=== PATIENT | male | born 1945 | race Caucasian/White ===

== ENCOUNTER 2018-08-31 17:14 | Inpatient (IN) | payer OTHER, MEDICARE ==
--- NOTE | 2018-08-31 17:22 | PDOC ---
Rapid Medical Evaluation Chief Complaint: Injury Time Seen by Provider: 08/31/18 17:16 Medical Evaluation: Allergies Allergy/AdvReac Type Severity Reaction Status Date / Time Penicillins Allergy Intermediate Rash Verified 08/31/18 17:16 08/31/18 17:18 I have performed a brief in-person evaluation of this patient. The patient presents with a chief complaint of: fall with arm forward, " I may have dislocated my shoulder" Pertinent physical exam findings: Shoulder capsule full, no mobility to right shoulder, strong grasp/ good pulse. Strain to right hip and thigh. I have ordered the following: shoulder Xray The patient will proceed to the ED for further evaluation Discharge Disposition - Diagnosis Shoulder injury - Referrals Referrals: Gabe Huber MD [Primary Care Provider] - - Patient Instructions - Post Discharge Activity
[2018-08-31] MEDS ORDERED: morphine CARPU-JECT 2 MG/1 ML DISP.SYRIN IVPUSH ONE ×2 (17:32→17:59)
--- NOTE | 2018-08-31 17:34 | PDOC ---
Attending Attestation - Medical Decision Making EXAM#: TYPE/EXAM: RESULT: [id number] RAD/SHOULDER-RIGHT Right shoulder: Trauma. Pain. 2 views of the shoulder reveal a fracture dislocation of the proximal humerus. The head is fractured. There is an anterior dislocation. The imaging is available for review. Orthopedic consultation and further imaging may be of help. Reported By: Pako Conn MD 08/31/18 180 <Mary Anne Dyson - Last Filed: 08/31/18 18:36> - Resident Resident Name: Cayla Noriega - ED Attending Attestation I have performed the following: I have examined & evaluated the patient, The case was reviewed & discussed with the resident, I agree w/resident's findings & plan, Exceptions are as noted - HPI HPI: 08/31/18 17:58 73y M hx of CAD (on brilinta), htn presents sp mechanical fall, going up the stairs and put his arm out to break his fall. Pt complaining of R shoulder pain as well as some tingling in the arm/shoulder and in his hand. Pt also complaining some mild Lower back pain that comes in spasms. denies head injury. No associated cp, sob, back pain, neck pain, abd pain, n/v. - Physicial Exam PE: 08/31/18 18:24 on exam pt has significant tenderness on his R shoulder diffusely, no sensation along deltoid region and lateral aspect of arm. motor intact with crane chaser strength. no focal tenderness on elbow and no pain with spination/pronation. no focal tenderness over midline or paraspinal region of cervical spine, thoracic, lumbar spine normal rom of his LUE/hand no focal bony tenderness of his hips/knee/ankle, no limiatations of his ROM - Critical Care Time Total Critical Care Time: 45 Critical Care Statement: The care of this patient involved high complexity decision making to prevent further life threatening deterioration of the patient 's condition and/or to evaluate & treat vital organ system(s) failure or risk of failure. - Medical Decision Making 08/31/18 18:25 on xray pt ahs a humeral head fracture and anterior dislocation of R shoulder suspect axillary nerve injury due to deminshed sensation consulted orthopedics, awaiting ortho for reduction due to associated fracture and neuro compromise preop labs obtained morphine for pain 08/31/18 17:20 pt signed out to Dr. Edgar to await Ortho and reduction consents for sedation already signed <Beto Barraza - Last Filed: 09/04/18 00:17>
[2018-08-31] MEDS ORDERED: morphine SULFATE 4 MG/ML VIAL ONE ×2 (17:44→18:45)
--- NOTE | 2018-08-31 17:44 | PDOC ---
History of Present Illness - General Chief Complaint: Injury Stated Complaint: RIGHT Shoulder PAIN Time Seen by Provider: 08/31/18 17:16 History Source: Patient Exam Limitations: No Limitations Past History - Past Medical History Allergies/Adverse Reactions: Allergies Allergy/AdvReac Type Severity Reaction Status Date / Time Penicillins Allergy Intermediate Rash Verified 08/31/18 17:16 Home Medications: Ambulatory Orders Atorvastatin Ca [Lipitor] 10 mg PO HS 07/04/14 Aspirin 81 mg PO DAILY 08/31/18 Carvedilol [Coreg -] 6.25 mg PO BID 08/31/18 Finasteride [Proscar -] 5 mg PO DAILY 08/31/18 Losartan/Hydrochlorothiazide [Losartan-Hctz 100-25 mg Tab] 1 each PO DAILY 08/31 Pantoprazole Sodium [Protonix -] 40 mg PO DAILY 08/31/18 Ticagrelor [Brilinta] 60 mg PO BID 08/31/18 Cardiac Disorders: Yes (AORTIC ANEURISM) COPD: No HTN: Yes Hypercholesterolemia: Yes - Surgical History Cardiac Surgery: Yes (stent LAD) - Suicide/Smoking/Psychosocial Hx Smoking History: Unknown if ever smoked *Physical Exam - Vital Signs Last Vital Signs Temp Pulse Resp BP Pulse Ox 72 24 H 172/72 H 99 08/31/18 17:20 08/31/18 17:20 08/31/18 17:20 08/31/18 17:20 Medical Decision Making - Medical Decision Making Pt in x-ray, will reassess when he returns. 08/31/18 17:34 Pt was seen at bedside, also seen by attending Dr. Barraza. Pt presenting with R shoulder PE showed [] Considering [vs vs] Ordered work-up including [labs] and [imaging]. Provided [interventions/meds] for improvement of [pain/symptom control]. Will continue to reassess pt and monitor for symptomatic improvement. 08/31/18 18:00 X-ray showed anterior dislocation of humerus and Dr. Goodwin (orthopedics) was paged. Requested humerus films. 08/31/18 18:17 Spoke with admitting team (Dr. Solano) who admitted the pt. 08/31/18 18:24 *DC/Admit/Observation/Transfer Diagnosis at time of Disposition: Shoulder injury Qualifiers: Encounter type: initial encounter Laterality: right Qualified Code(s): S49.91XA - Unspecified injury of right shoulder and upper arm, initial encounter Anterior dislocation of right shoulder Qualifiers: Encounter type: initial encounter Qualified Code(s): S43.014A - Anterior dislocation of right humerus, initial encounter Fracture of proximal end of right humerus Qualifiers: Encounter type: initial encounter Fracture type: closed Fracture morphology: unspecified fracture morphology Qualified Code(s): S42.201A - Unspecified fracture of upper end of right humerus, initial encounter for closed fracture - Discharge Dispostion Condition at time of disposition: Stable Decision to Admit order: Yes - Referrals Referrals: Gabe Huber MD [Primary Care Provider] - - Patient Instructions - Post Discharge Activity
[2018-08-31 18:05] LABS: BASO % 0.6 % (0-2.0); HEMATOCRIT 42.1 % (35.4-49); HEMOGLOBIN 14.6 GM/dL (11.7-16.9); LYMPH % 34.5 % (8-40); MCH 30.7 pg (25.7-33.7); MCHC 34.6 g/dl (32.0-35.9); MEAN CELL VOLUME 88.8 fl (80-96); MEAN PLT VOLUME 8.4 fl (7.5-11.1); MONO % 10.9 % (3.8-10.2); PLATELET COUNT 291 K/MM3 (134-434); RBC 4.75 M/mm3 (4.00-5.60); RDW 15.5 % (11.9-15.9); WHITE BLOOD COUNT 11.7 K/mm3 (4.0-10.0)
[2018-08-31 18:27] LABS: ALK PHOS 76 U/L (45-117); ANION GAP 12 MMOL/L (8-16); BILIRUBIN,TOTAL 0.7 mg/dL (0.2-1); BLOOD UREA NITROGEN 18 mg/dL (7-18); CALCIUM 8.9 mg/dL (8.5-10.1); CHLORIDE 103 mmol/L (98-107); CO2 25 mmol/L (21-32); CREATININE 1.1 mg/dL (0.55-1.3); GLUCOSE,RANDOM 124 mg/dL (74-106); POTASSIUM 3.6 mmol/L (3.5-5.1); SGOT/AST 15 U/L (15-37); SGPT/ALT 21 U/L (13-61); SODIUM 140 mmol/L (136-145)
[2018-08-31] MEDS ORDERED: morphine CARPU-JECT 4 MG/1 ML DISP.SYRIN IVPUSH ONE (18:32)
[2018-08-31 18:38] LABS: INR 1.03 (0.83-1.09); PROTHROMBIN TIME (PATIENT) 12.1 SEC (9.7-13.0)
[2018-08-31] MEDS ORDERED: MORPHINE SULFATE 2 MG/ML VIAL ONE (18:46)
--- NOTE | 2018-08-31 20:08 | HP ---
CHIEF COMPLAINT: Right arm and shoulder pain s/p fall PCP: Dr. Gabe [facility] Attendant: Dr. Annalee Jara [phone] HISTORY OF PRESENT ILLNESS: 73 year old male with a PMH significant for CAD s/p stent, AAA, HTN, HLD, GERD, and BPH presented to the ED s/p falling on the stairs. Patient reports he was walking up the stairs when he did no clear the 4th step up with his foot and fell back onto his right shoulder. He states he did not hit his head or lose consciousness. He reports severe pain in right shoulder with numbness and tingling in his right fingers. He denies recent fever, light-headedness, syncope, dizziness, chest pain, palpitations, SOB, VELARDE, n/v/d. He reports his overall health has been good and he has been feeling better than ever since his stent in February 2017. Upon admission to the ED VSS, Labs WNL except for slightly elevated WBC of 11.7. X-rays show comminuted fracture of hurmeral head and neck with anterior dislocation of the proximal humerus. Patient given Morphine 2 mg x 2, 6 mg x 1 for pain. Patient reports he is still having significant pain, but the morphine has helped. Orthopedist Dr. Goodwin contacted to examine the patient. Recent Travel: , May 2018 PAST MEDICAL HISTORY: [place] Thoracic ascending Aortic Aneurysm HTN HLD GERD BPH PAST SURGICAL HISTORY: Cardiac Stent x 1 to LAD x 1, February 2017 Social History: Smoking: Former, quit >40 years ago Alcohol: Social Drugs: Denies Family History: Father: Aneurysm, age 56 Mother: Heart disease, age 87 Allergies Penicillins Allergy (Intermediate, Verified 08/31/18 17:16) Rash HOME MEDICATIONS: Home Medications Medication Instructions Recorded Atorvastatin Ca [Lipitor] 10 mg PO HS 07/04/14 Aspirin 81 mg PO DAILY 08/31/18 Carvedilol [Coreg -] 6.25 mg PO BID 08/31/18 Finasteride [Proscar -] 5 mg PO DAILY 08/31/18 Losartan/Hydrochlorothiazide 1 each PO DAILY 08/31/18 [Losartan-Hctz 100-25 mg Tab] Pantoprazole Sodium [Protonix -] 40 mg PO DAILY 08/31/18 Ticagrelor [Brilinta] 60 mg PO BID 08/31/18 REVIEW OF SYSTEMS CONSTITUTIONAL: Absent: fever, chills, diaphoresis, generalized weakness, malaise, loss of appetite, weight change HEENT: Absent: rhinorrhea, nasal congestion, throat pain, throat swelling, difficulty swallowing, mouth swelling, ear pain, eye pain, visual changes CARDIOVASCULAR: (+) Pheripheral edema to lower legs in the evenings Absent: chest pain, syncope, palpitations, irregular heart rate, lightheadedness RESPIRATORY: Absent: cough, shortness of breath, dyspnea with exertion, orthopnea, wheezing, stridor, hemoptysis GASTROINTESTINAL: Absent: abdominal pain, abdominal distension, nausea, vomiting, diarrhea, constipation, melena, hematochezia GENITOURINARY: Absent: dysuria, frequency, urgency, hesitancy, hematuria, flank pain, genital pain MUSCULOSKELETAL: +++Right shoulder pain, numbness in fingers Absent: myalgia, arthralgia, joint swelling, back pain, neck pain SKIN: Absent: rash, itching, pallor HEMATOLOGIC/IMMUNOLOGIC: Absent: easy bleeding, easy bruising, lymphadenopathy, frequent infections ENDOCRINE: Absent: unexplained weight gain, unexplained weight loss, heat intolerance, cold intolerance NEUROLOGIC: Absent: headache, focal weakness or paresthesias, dizziness, unsteady gait, seizure, mental status changes, bladder or bowel incontinence PSYCHIATRIC: Absent: anxiety, depression, suicidal or homicidal ideation, hallucinations. PHYSICAL EXAMINATION Vital Signs - 24 hr 08/31/18 17:20 Pulse Rate 72 Respiratory 24 H Rate Blood Pressure 172/72 H O2 Sat by Pulse 99 Oximetry (%) GENERAL: Awake, alert, and fully oriented, appears very uncomfortable d/t pain. and daughter present. HEAD: Normal with no signs of trauma. EYES: Pupils equal, round and reactive to light, extraocular movements intact, sclera anicteric, conjunctiva clear. No lid lag. EARS, NOSE, THROAT: Nares patent, oropharynx clear without exudates. Moist mucous membranes. NECK: Normal range of motion, supple without lymphadenopathy, JVD, or masses. LUNGS: Breath sounds equal, clear to auscultation bilaterally. No wheezes, and no crackles. No accessory muscle use. HEART: Regular rate and rhythm, normal S1 and S2 without murmur, rub or gallop. ABDOMEN: Obese, soft, nontender, not distended, normoactive bowel sounds, no guarding, no rebound, no masses. No hepatomegaly or splenomegaly. MUSCULOSKELETAL: Extreme tenderness to right arm, patient unwilling to move arm , arm in a sling resting on chair. No discoloration of skin, no bony deformities UPPER EXTREMITIES: 2+ pulses, warm, well-perfused. No cyanosis. No clubbing. No peripheral edema. LOWER EXTREMITIES: +1 pitting edema to b/l le, 2+ pulses, warm, well-perfused. No calf tenderness. NEUROLOGICAL: No facial droop, tongue midline, normal speech. Gait not observed. PSYCHIATRIC: Cooperative. Good eye contact. Appropriate mood and affect. SKIN: Warm, dry, normal turgor, no rashes or lesions noted, normal capillary refill. Laboratory Results - last 24 hr 08/31/18 08/31/18 08/31/18 17:56 17:56 18:08 WBC 11.7 H RBC 4.75 Hgb 14.6 Hct 42.1 MCV 88.8 MCH 30.7 MCHC 34.6 RDW 15.5 Plt Count 291 D MPV 8.4 Absolute Neuts (auto) 6.1 Neutrophils % 52.0 Lymphocytes % 34.5 D Monocytes % 10.9 H Eosinophils % 2.0 Basophils % 0.6 Nucleated RBC % 0 PT with INR 12.10 INR 1.03 Sodium 140 Potassium 3.6 Chloride 103 Carbon Dioxide 25 Anion Gap 12 BUN 18 Creatinine 1.1 Creat Clearance w eGFR > 60 Random Glucose 124 H Calcium 8.9 Total Bilirubin 0.7 AST 15 ALT 21 Alkaline Phosphatase 76 Total Protein 7.0 Albumin 4.0 X-ray Right Shoulder: fracture dislocation of the proximal humerus. The head is fractured. There is anterior dislocation. showed anterior dislocation of humerus and Humerus: Fracture dislocation of the proximal humerus. the humerus is displaced anteriorly. The humeral head and neck shows a comminuted fracture. ASSESSMENT/PLAN: 73 year old male with a PMH significant for CAD s/p stent, AAA, HTN, HLD, GERD, and BPH presented to the ED s/p falling on the stairs. He was admitted for humeral head fracture and proximal humerus dislocation. Right shoulder dislocation and fracture -Right arm immobilized in a sling -Morphine for pain management -Orthopedist Dr. Goodwin consulting -Shoulder reduced in ED via traction/countertraction under sedation with Propofol -Plan for surgical correction of fracture HTN -Carvedilol 6.25 mg BID -Losartan/Hctz qday HLD -LFTs WNL -Atorvastatin 10 mg CAD -Anterior LA Feb, 2017 s/p stenting of LAD -Thoracic Ascending Aortic Aneurysm -Stable, followed by relief master Dr. Annalee Jara who monitors it annually via CT -Follows cardiothoracic surgeon at [facility] 2 yrs -Seen by relief master Dr. Annalee Jara 3 weeks ago -Echo from visit showed preserved LV function; EF is normal -Continue ASA 81 mg daily per -Hold Brilinta for surgery GERD -Pantoprazole 40 mg qday BPH -Finasteride 5 mg daily FEN -Hold fluids for now -Electrolytes replete as indicated -NPO for now in case of surgery DVT Prophylaxis -On ASA -SCDs Dispo: pt currently requires further inpatient care. FULL CODE Visit type - Emergency Visit Emergency Visit: Yes ED Registration Date: 08/31/18 Care time: The patient presented to the Emergency Department on the above date and was hospitalized for further evaluation of their emergent condition. - New Patient This patient is new to me today: Yes Date on this admission: 08/31/18 - Critical Care Critical Care patient: No
[2018-08-31] MEDS ORDERED: PROPOFOL 200 MG/20 ML VIAL IVPUSH ONE (20:09)
[2018-08-31] MEDS ORDERED: fentaNYL CITRATE/PF 1,000 MCG/20 ML AMPUL IVPUSH ONE (20:10)
[2018-08-31] MEDS ORDERED: PROPOFOL 1,000,000 MCG/100 ML VIAL ONE (20:22)
[2018-08-31] MEDS ORDERED: LIDOCAINE HCL 1%, 10 MG/ML (20ML VIAL) ONE (20:25)
--- NOTE | 2018-08-31 21:30 | PDOC ---
Moderate Sedation - Pre-Procedure Assessment Joint Reduction Is this a Moderate (Conscious) sedation patient?: Yes Med/Surg Hx & PE performed: Yes Vital Signs: Vital Signs Temp Pulse Resp BP Pulse Ox 72 24 H 172/72 H 99 08/31/18 17:20 08/31/18 17:20 08/31/18 17:20 08/31/18 17:20 Does the patient have a history of Obstructive Sleep Apnea: No Prior complications with sedation/analgesia: No NPO since (date): 08/31/18 NPO since (time): 14:00 Mallampati Score: II Consent obtained: Written Items checked for time out procedure: All work stopped, Patient identified using 2 identifiers, Procedure to be performed verified & agreed, Allergies noted, Consent read, Site marked & verified (if indicated), ED physician/ENGLISH TEACHER/PA/ Resident identified, Patient position verified, All active procedure participants present from the beginning Sedation agent: Propofol - Post Procedure Assessment Tolerated procedure well: Yes Was a reversal agent used?: No Patient evaluation: Awake, alert and oriented, Vital signs reviewed, Cardiopulmonary exam normal, Pain controlled
--- NOTE | 2018-08-31 21:37 | PDOC ---
*Physical Exam - Vital Signs Last Vital Signs Temp Pulse Resp BP Pulse Ox 72 24 H 172/72 H 99 08/31/18 17:20 08/31/18 17:20 08/31/18 17:20 08/31/18 17:20 ED Treatment Course - LABORATORY CBC & Chemistry Diagram: 08/31/18 17:56 08/31/18 17:56 - ADDITIONAL ORDERS Additional order review: Laboratory Results 08/31/18 08/31/18 18:08 17:56 PT with INR 12.10 INR 1.03 Sodium 140 Potassium 3.6 Chloride 103 Carbon Dioxide 25 Anion Gap 12 BUN 18 Creatinine 1.1 Creat Clearance w eGFR > 60 Random Glucose 124 H Calcium 8.9 Total Bilirubin 0.7 AST 15 ALT 21 Alkaline Phosphatase 76 Total Protein 7.0 Albumin 4.0 08/31/18 17:56 RBC 4.75 MCV 88.8 MCHC 34.6 RDW 15.5 MPV 8.4 Neutrophils % 52.0 Lymphocytes % 34.5 D Monocytes % 10.9 H Eosinophils % 2.0 Basophils % 0.6 - Medications Given in the ED: ED Medications Discontinued Medications Generic Name Dose Route Start Last Admin Trade Name Chidiq PRN Reason Stop Dose Admin Fentanyl 25 mcg 08/31/18 20:10 08/31/18 20:18 Sublimaze Injection - IVPUSH 08/31/18 20:11 25 mcg ONCE ONE Administration Morphine Sulfate 2 mg 08/31/18 17:32 08/31/18 17:59 Morphine Injection - IVPUSH 08/31/18 17:33 2 mg ONCE ONE Administration Morphine Sulfate 2 mg 08/31/18 17:59 08/31/18 17:55 Morphine Injection - IVPUSH 08/31/18 18:00 2 mg ONCE ONE Administration Morphine Sulfate 6 mg 08/31/18 18:32 08/31/18 18:52 Morphine Injection - IVPUSH 08/31/18 18:33 6 mg ONCE ONE Administration Propofol 50 mcg 08/31/18 20:09 08/31/18 20:18 Diprivan - IVPUSH 08/31/18 20:10 50 mcg ONCE ONE Administration Medical Decision Making - Critical Care Time Total Critical Care Time (minutes): 30 Critical Care Statement: The care of this patient involved high complexity decision making to prevent further life threatening deterioration of the patient 's condition and/or to evaluate & treat vital organ system(s) failure or risk of failure. - Medical Decision Making 08/31/18 21:31 73 M with fx/dislocation of R shoulder. Sign out received from Dr. Barraza at 7PM. Pt consented for procedural sedation. Pt placed on environmental monitoring specialist, with continuous O2 sat, placed in supine position. 50mg propofol administered, with minimal response in sedation. Additional 30mg propofol given, followed by adequate sedation. Procedure complicated by transient episode of apnea. Oral airway placed and rescue breaths administered via BVM, with return of spontaneous breathing after 5 minutes. Vitals remained stable throughout. Pt monitored in ED with attending at bedside until full return to baseline mentation. Shoulder reduced by ortho in ED via traction/countertraction. Post-reduction films obtained. Pt admitted to hospitalist. *DC/Admit/Observation/Transfer Diagnosis at time of Disposition: Shoulder injury Qualifiers: Encounter type: initial encounter Laterality: right Qualified Code(s): S49.91XA - Unspecified injury of right shoulder and upper arm, initial encounter Anterior dislocation of right shoulder Qualifiers: Encounter type: initial encounter Qualified Code(s): S43.014A - Anterior dislocation of right humerus, initial encounter Fracture of proximal end of right humerus Qualifiers: Encounter type: initial encounter Fracture type: closed Fracture morphology: unspecified fracture morphology Qualified Code(s): S42.201A - Unspecified fracture of upper end of right humerus, initial encounter for closed fracture - Discharge Dispostion Condition at time of disposition: Stable - Referrals - Patient Instructions - Post Discharge Activity
--- NOTE | 2018-08-31 22:42 | PN ---
Progress Note (short form) - Note Progress Note: ORTHOPEDIC SURGERY CONSULTATION NOTE CHIEF COMPLAINT Right shoulder pain HISTORY OF PRESENT ILLNESS Gopal Vaz is a 73 year old right-hand dominant male who presents to [facility] ED with right shoulder pain after a fall. The fall occurred around 5:00 PM this evening. The orthopedic service was consulted for a right proximal humerus fracture-dislocation. The injury occurred at home. While the patient was walking down the steps, he tripped and reached out with his right hand to brace his fall. He felt severe pain in his right shoulder after landed on the floor. The patient notes sharp pain to the right shoulder. He also complains of pain in his right hip and knee. He states he has a history of knee problems. He denies any other injuries. He complains of numbness and tingling in his hand. He denies any constitutional complaints. 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 The patient lives with family and uses no assistive devices at baseline. The patient last had something to eat and/or drink at 2:00 PM today. The patient's PCP is Dr. Gabe Huber; his street cleaning equipment operator is Dr. Annalee Jara [phone] PAST MEDICAL HISTORY CA , Thoracic ascending Aortic Aneurysm , HTN , HLD, GERD ,BPH SURGICAL HISTORY Cardiac Stent x 1 to LAD x 1, February 2017 FAMILY HISTORY Father: Aneurysm, age 56 Mother: Heart disease, age 87 SOCIAL HISTORY Smoking: Former, quit >40 years ago Alcohol: Social Drugs: Denies MEDICATIONS Home Medications Medication Instructions Recorded Atorvastatin Ca [Lipitor] 10 mg PO HS 07/04/14 Aspirin 81 mg PO DAILY 08/31/18 Carvedilol [Coreg -] 6.25 mg PO BID 08/31/18 Finasteride [Proscar -] 5 mg PO DAILY 08/31/18 Losartan/Hydrochlorothiazide 1 each PO DAILY 08/31/18 [Losartan-Hctz 100-25 mg Tab] Pantoprazole Sodium [Protonix -] 40 mg PO DAILY 08/31/18 Ticagrelor [Brilinta] 60 mg PO BID 08/31/18 ALLERGIES Allergies Allergy/AdvReac Type Severity Reaction Status Date / Time Penicillins Allergy Intermediate Rash Verified 08/31/18 17:16 REVIEW OF SYMPTOMS A twelve-point review of systems was performed and was negative except as noted in HPI. PHYSICAL EXAM Constitutional: Alert and oriented to person, place, and time. Appears well- developed and well-nourished. He is in acute distress. Appropriate mood and affect. HEENT: Normocephalic, atraumatic Cardiovascular: Regular rate and rhythm, extremities warm, no cyanosis Pulmonary: Breathing comfortably, normal air movement, no audible wheezing Right Upper Extremity: Obvious deformity noted of the right shoulder. Skin warm , dry, and intact; no lesions, rashes or ulcers noted. Muscle mass equal and symmetric to contralateral side. No atrophy noted. No masses or effusions noted. Tender to palpation at the shoulder; nontender throughout rest of extremity. No expanding hematoma noted. Unable to make OK sign, unable to abduct fingers, unable to bend thumb IP joint. Able to flex and extend elbow, able to fire his deltoid, able to flex and extend wrist and thumb IP joints. Altered sensation to right thumb, middle finger, little finger and ulnar aspect of the forearm. Sensation intact over the radial sensory distribution of the hand; 2+ radial pulses; Cap refill brisk. Left Upper Extremity: Skin warm, dry, and intact; no lesions, rashes or ulcers noted. Muscle mass equal and symmetric to contralateral side. No atrophy noted. No masses or effusions noted. No tenderness to palpation. Full passive and active ROM, free from pain. Joints stable with no pathologic laxity. M/R/U/MSK/ AX motor intact; SILT distally; 2+ radial pulses; Cap refill brisk. Tone and reflexes normal. Right Lower Extremity: No tenderness to palpation. No cords or calf tenderness. No significant calf/ankle edema. Full passive and active ROM, free from pain. Joints stable with no pathologic laxity. EHL/TA/GS motor intact; SILT distally; 2+ DP pulses; Cap refill brisk. Left Lower Extremity: No tenderness to palpation. No cords or calf tenderness. No significant calf/ankle edema. Full passive and active ROM, free from pain. Joints stable with no pathologic laxity. EHL/TA/GS motor intact; SILT distally; 2+ DP pulses; Cap refill brisk. VITAL SIGNS Vital Signs Period Temp Pulse Resp BP Sys/Calero Pulse Ox Last 24 Hr 72 24 172/72 99 INPUT/OUTPUT Intake & Output 08/29/18 08/30/18 08/30/18 08/31/18 00:59 00:59 23:59 23:59 Weight 215 lb LAB DATA CBC WBC 11.7 K/mm3 (4.0-10.0) H 08/31/18 17:56 RBC 4.75 M/mm3 (4.00-5.60) 08/31/18 17:56 Hgb 14.6 GM/dL (11.7-16.9) 08/31/18 17:56 Hct 42.1 % (35.4-49) 08/31/18 17:56 MCV 88.8 fl (80-96) 08/31/18 17:56 MCH 30.7 pg (25.7-33.7) 08/31/18 17:56 MCHC 34.6 g/dl (32.0-35.9) 08/31/18 17:56 RDW 15.5 % (11.9-15.9) 08/31/18 17:56 Plt Count 291 K/MM3 (134-434) D 08/31/18 17:56 MPV 8.4 fl (7.5-11.1) 08/31/18 17:56 Absolute Neuts (auto) 6.1 K/mm3 (1.5-8.0) 08/31/18 17:56 Neutrophils % 52.0 % (42.8-82.8) 08/31/18 17:56 Lymphocytes % 34.5 % (8-40) D 08/31/18 17:56 Monocytes % 10.9 % (3.8-10.2) H 08/31/18 17:56 Eosinophils % 2.0 % (0-4.5) 08/31/18 17:56 Basophils % 0.6 % (0-2.0) 08/31/18 17:56 Nucleated RBC % 0 % (0-0) 08/31/18 17:56 CMP Sodium 140 mmol/L (136-145) 08/31/18 17:56 Potassium 3.6 mmol/L (3.5-5.1) 08/31/18 17:56 Chloride 103 mmol/L (98-107) 08/31/18 17:56 Carbon Dioxide 25 mmol/L (21-32) 08/31/18 17:56 Anion Gap 12 MMOL/L (8-16) 08/31/18 17:56 BUN 18 mg/dL (7-18) 08/31/18 17:56 Creatinine 1.1 mg/dL (0.55-1.3) 08/31/18 17:56 Creat Clearance w eGFR > 60 (>60) 08/31/18 17:56 Random Glucose 124 mg/dL (74-106) H 08/31/18 17:56 Calcium 8.9 mg/dL (8.5-10.1) 08/31/18 17:56 Total Bilirubin 0.7 mg/dL (0.2-1) 08/31/18 17:56 AST 15 U/L (15-37) 08/31/18 17:56 ALT 21 U/L (13-61) 08/31/18 17:56 Alkaline Phosphatase 76 U/L (45-117) 08/31/18 17:56 Total Protein 7.0 g/dl (6.4-8.2) 08/31/18 17:56 Albumin 4.0 g/dl (3.4-5.0) 08/31/18 17:56 INR, PTT INR 1.03 (0.83-1.09) 08/31/18 18:08 IMAGING I personally reviewed all radiographs, CT, and other imaging. They demonstrate a fracture-dislocation of the right proximal humerus. The articular portion is dislocated anteriorly. The greater tuberosity is comminuted and displaced. There is no significant hematoma noted that is compressing the neurovascular structures. ASSESSMENT AND PLAN 73 year old right-hand dominant male with (1) right proximal humerus fracture- dislocation, (2) brachial plexopathy involving the median and ulnar nerves. We have reviewed the imaging and clinical findings in detail, as well as their potential implications. After appropriate informed discussion, the patient underwent a closed reduction of the right shoulder and was placed in a sling. After reduction, the patient had increased ability to flex the thumb IP joint and abduct the fingers. Sensation to the little finger, middle finger, thumb, and ulnar aspect of the forearm improved but still remained altered. - Post reduction radiographs and CT reviewed. They show a comminuted and mildly displaced fracture of the greater tuberosity. The glenohumeral joint is reduced. - Monitor neurovascular exam - No acute surgical intervention. He will remain in a sling. No shoulder ROM. No pendulums. No strengthening until cleared. - May perform elbow, wrist, and hand range of motion as tolerated. - FU AP Pelvis and right knee radiographs - Avoid NSAID medications PROCEDURE NOTE- CLOSED REDUCTION OF A PROXIMAL HUMERUS (SHOULDER) FRACTURE- DISLOCATION The anterior shoulder was prepped with betadyne solution and 10 mL of 1% lidocaine was injected into the glenohumeral joint space. After waiting the appropriate amount of time to safely administer medication for conscious sedation, the ED attending administered propofol. We used a traction- countertraction technique to gently reduce the humeral head onto the glenoid. A palpable clunk was felt and immediately he had improved range of motion, external rotation to 20 degrees, and smooth rotation as well as abduction and forward elevation. We then placed the arm in a shoulder sling and a portable x- ray came to the room for postreduction radiographs that were performed: true AP as well as a axillary view which I held his arm in position for. Biplanar fluoroscopy was used to confirm reduction. The patient was awoken from anesthesia. Post reduction exam was performed and noted above. All questions were answered. Thank you for involving our team in the care of this patient. Please have patient follow up in our office after discharge [phone]. DO Gopal Holland DO Department of Orthopedic Surgery [phone]
[2018-08-31] MEDS: ATORVASTATIN CA 10 MG TABLET (FP) PO SCH (23:00)
[2018-08-31] MEDS: CARVEDILOL 6.25 MG TABLET (FP) PO SCH (23:00)
[2018-08-31] MEDS ORDERED: CARVEDILOL 12.5 MG TABLET (FP) ONE (23:27)
[2018-08-31] MEDS ORDERED: ATORVASTATIN CA 10 MG TABLET (FP) ONE (23:28)
[2018-09-01] MEDS ORDERED: ASPIRIN 81 MG CHEWABLE TABLETS PO SCH ×2 (01:00→10:00)
[2018-09-01] MEDS ORDERED: ASPIRIN 81 MG CHEWABLE TABLETS ONE (01:05)
[2018-09-01 01:40] VITALS: BMI 34.3
[2018-09-01] MEDS: oxyCODONE HCL 5 MG TABLET PO PRN ×3 (06:44→18:03)
--- NOTE | 2018-09-01 08:52 | PN ---
Progress Note (short form) - Note Progress Note: ORTHOPEDIC SURGERY PROGRESS NOTE SUBJECTIVE No acute events overnight. Denies any pain. No complaints currently other than persistent altered sensation in his fingers. Denies chest pain, shortness of breath, or calf pain. No nausea or vomiting. Tolerating oral intake. VITAL SIGNS Vital Signs - 8 hr 09/01/18 09/01/18 09/01/18 01:34 01:49 07:00 Temperature 97.8 F 98.0 F Pulse Rate 91 H 84 Respiratory 18 18 18 Rate Blood Pressure 149/73 121/76 O2 Sat by Pulse 100 Oximetry (%) INTAKE/OUTPUT Intake & Output 08/31/18 09/01/18 09/01/18 23:59 07:59 15:59 Weight 215 lb 239 lb 3 oz Other: Voiding Method Urinal # Unmeasured Voids Void 1 Height 5 ft 10 in 5 ft 10 in Body Mass Index (BMI) 30.8 34.3 Weight Measurement Method Standing Scale PHYSICAL EXAMINATION General: Alert, oriented, cooperative and no distress. Sitting comfortably in bed. Right Upper Extremity: Sling on. Moderate soft tissue swelling. Skin overlying shoulder is firm but compressible. No axillary hematoma formation. Skin intact, no lesions, rashes or ulcers noted. Muscle mass equal and symmetric to contralateral side. Mild tenderness to palpation over the shoulder. Unable to make okay sign. Able to fire his deltoid; able to extend his thumb IP joint; able to abduct his fingers, but weak; able to extend his wrist; able to flex and extend his elbow. Altered sensation over the lateral aspect of the shoulder. Altered sensation over the thumb and middle finger and ulnar aspect of the forearm. Sensation intact over the little finger. 2+ radial pulses; Cap refill brisk. Lower Extremity: No tenderness to palpation. Full passive and active ROM, free from pain. EHL/TA/GS motor intact; SILT distally; 2+ DP pulses; Cap refill brisk DVT Exam: No evidence of DVT seen on physical exam; No cords or calf tenderness ; No significant calf/ankle edema CURRENT MEDS Current Medications Aspirin (Asa -) 81 mg PO [facility] Last Admin: 09/01/18 01:06 Dose: 81 mg Atorvastatin Calcium (Lipitor -) 10 mg PO HS [facility] Last Admin: 08/31/18 23:00 Dose: 10 mg Carvedilol (Coreg -) 6.25 mg PO BID [facility] Last Admin: 08/31/18 23:00 Dose: 6.25 mg Docusate Sodium (Colace -) 300 mg PO HS [facility] Finasteride (Proscar -) 5 mg PO DAILY [facility] HCTZ/Losartan Potassium (Hyzaar -) 2 tab PO DAILY [facility] Influenza Virus Vaccine Quadrival (Flulaval Quad [id number]) 60 mcg IM .ONCE ONE Stop: 09/01/18 10:01 Oxycodone HCl (Roxicodone -) 5 mg PO Q4H PRN PRN Reason: PAIN LEVEL 6-10 Last Admin: 09/01/18 06:44 Dose: 5 mg Pantoprazole Sodium (Protonix -) 40 mg PO DAILY [facility] Ticagrelor (Brilinta) 60 mg PO BID [facility] LABS CBC WBC 11.7 K/mm3 (4.0-10.0) H 08/31/18 17:56 RBC 4.75 M/mm3 (4.00-5.60) 08/31/18 17:56 Hgb 14.6 GM/dL (11.7-16.9) 08/31/18 17:56 Hct 42.1 % (35.4-49) 08/31/18 17:56 MCV 88.8 fl (80-96) 08/31/18 17:56 MCH 30.7 pg (25.7-33.7) 08/31/18 17:56 MCHC 34.6 g/dl (32.0-35.9) 08/31/18 17:56 RDW 15.5 % (11.9-15.9) 08/31/18 17:56 Plt Count 291 K/MM3 (134-434) D 08/31/18 17:56 MPV 8.4 fl (7.5-11.1) 08/31/18 17:56 Absolute Neuts (auto) 6.1 K/mm3 (1.5-8.0) 08/31/18 17:56 Neutrophils % 52.0 % (42.8-82.8) 08/31/18 17:56 Lymphocytes % 34.5 % (8-40) D 08/31/18 17:56 Monocytes % 10.9 % (3.8-10.2) H 08/31/18 17:56 Eosinophils % 2.0 % (0-4.5) 08/31/18 17:56 Basophils % 0.6 % (0-2.0) 08/31/18 17:56 Nucleated RBC % 0 % (0-0) 08/31/18 17:56 CMP Sodium 140 mmol/L (136-145) 08/31/18 17:56 Potassium 3.6 mmol/L (3.5-5.1) 08/31/18 17:56 Chloride 103 mmol/L (98-107) 08/31/18 17:56 Carbon Dioxide 25 mmol/L (21-32) 08/31/18 17:56 Anion Gap 12 MMOL/L (8-16) 08/31/18 17:56 BUN 18 mg/dL (7-18) 08/31/18 17:56 Creatinine 1.1 mg/dL (0.55-1.3) 08/31/18 17:56 Creat Clearance w eGFR > 60 (>60) 08/31/18 17:56 Random Glucose 124 mg/dL (74-106) H 08/31/18 17:56 Calcium 8.9 mg/dL (8.5-10.1) 08/31/18 17:56 Total Bilirubin 0.7 mg/dL (0.2-1) 08/31/18 17:56 AST 15 U/L (15-37) 08/31/18 17:56 ALT 21 U/L (13-61) 08/31/18 17:56 Alkaline Phosphatase 76 U/L (45-117) 08/31/18 17:56 Total Protein 7.0 g/dl (6.4-8.2) 08/31/18 17:56 Albumin 4.0 g/dl (3.4-5.0) 08/31/18 17:56 INR, PTT INR 1.03 (0.83-1.09) 08/31/18 18:08 IMAGING Radiographs of the right knee were personally reviewed by me today. AP and lateral views show severe degenerative changes of all three compartments. There is joint space narrowing, osteophyte formation, loose body formation and overall varus malalignment. Radiograph of the pelvis was personally reviewed by me today. The image is limited but does not reveal any fracture or dislocation. ASSESSMENT AND PLAN 73 year old right-hand dominant male with (1) right proximal humerus fracture- dislocation, (2) brachial plexopathy involving the median and ulnar nerves. - There is increased soft tissue swelling of the right shoulder overnight. There is also new sensory changes in the lateral aspect of the shoulder in the axillary nerve distribution. This may be due to local soft tissue swelling. We will order a CT of the right shoulder with contrast to evaluate the hematoma. - Keep NPO - Will continue to monitor his neurovascular status - Maintain sling. No Shoulder ROM; Elbow, wrist and hand ROM okay. - Appreciate medical management DO Gopal Holland, Orthopedic Surgery [phone]
[2018-09-01] MEDS ORDERED: FLU VACCINE QUAD 60 MCG/0.5 ML (MDV 18-19) IM ONE (10:00)
[2018-09-01] MEDS ORDERED: PT OWN MED DRAWER 7, Y5N ONE ×3 (10:32→12:13)
[2018-09-01] MEDS: PANTOPRAZOLE 40 MG TABLET (FP) PO SCH (10:48)
[2018-09-01] MEDS: TICAGRELOR 60 MG TABLET PO SCH ×2 (10:48→11:00)
[2018-09-01] MEDS: FINASTERIDE 5 MG TABLET (FP) PO SCH (10:48)
[2018-09-01] MEDS: CARVEDILOL 6.25 MG TABLET (FP) PO SCH ×2 (10:48→22:46)
--- NOTE | 2018-09-01 12:07 | EKG ---
Test Reason : Blood Pressure : / mmHG Vent. Rate : 078 BPM Atrial Rate : 078 BPM P-R Int : 156 ms QRS Dur : 086 ms QT Int : 418 ms P-R-T Axes : 031 001 007 degrees QTc Int : 476 ms NORMAL SINUS RHYTHM NONSPECIFIC ST ABNORMALITY ABNORMAL ECG NO PREVIOUS ECGS AVAILABLE Confirmed by MD ABHAY, GUALBERTO ([id number]) on 09/01/2018 12:07:21 PM Referred By: Confirmed By:GUALBERTO BLANK MD
[2018-09-01] MEDS: LOSARTAN 50MG/HCTZ 12.5MG 1 TAB (FP) PO SCH (12:17)
--- NOTE | 2018-09-01 13:55 | PN ---
Progress Note, Physician Chief Complaint: patient seen and examiend admitted s/p fall right shoulder disclocation and fracture - Current Medication List Current Medications: Active Medications Aspirin (Asa -) 81 mg PO [facility] Last Admin: 09/01/18 01:06 Dose: 81 mg Atorvastatin Calcium (Lipitor -) 10 mg PO HS [facility] Last Admin: 08/31/18 23:00 Dose: 10 mg Carvedilol (Coreg -) 6.25 mg PO BID [facility] Last Admin: 09/01/18 10:48 Dose: 6.25 mg Docusate Sodium (Colace -) 300 mg PO [facility] Finasteride (Proscar -) 5 mg PO DAILY [facility] Last Admin: 09/01/18 10:48 Dose: 5 mg HCTZ/Losartan Potassium (Hyzaar -) 2 tab PO DAILY [facility] Last Admin: 09/01/18 12:17 Dose: 2 tab Oxycodone HCl (Roxicodone -) 5 mg PO Q4H PRN PRN Reason: PAIN LEVEL 6-10 Last Admin: 09/01/18 11:13 Dose: 5 mg Pantoprazole Sodium (Protonix -) 40 mg PO DAILY [facility] Last Admin: 09/01/18 10:48 Dose: 40 mg Ticagrelor (Brilinta) 60 mg PO BID [facility] - Objective Vital Signs: Vital Signs Temperature 98.0 F 09/01/18 07:00 Pulse Rate 84 09/01/18 07:00 Respiratory Rate 18 09/01/18 09:00 Blood Pressure 121/76 09/01/18 07:00 O2 Sat by Pulse Oximetry (%) 100 09/01/18 09:00 Constitutional: Yes: Calm Cardiovascular: Yes: Regular Rate and Rhythm, S1, S2 Respiratory: Yes: CTA Bilaterally Gastrointestinal: Yes: Normal Bowel Sounds, Soft Extremities: Yes: Other (right shoulder joint swollen with tenderness at the joint anteriorly) Edema: Yes Neurological: Yes: Alert, Oriented, Other (loss of sensation of the thumb and second finer right hand and decreased sensation on third finger, fourth and fifth finger sensation intact) Labs: CBC, BMP 08/31/18 17:56 08/31/18 17:56 INR, PTT INR 1.03 (0.83-1.09) 08/31/18 18:08 Problem List - Problems (1) Anterior dislocation of right shoulder Assessment/Plan: seen by ortho shoulder relocated cTa done to look for hematoma pain control stool softners inc WBC secondary to stress of fracture and fall- will repeat today monitor the h/h Code(s): S43.014A - ANTERIOR DISLOCATION OF RIGHT HUMERUS, INITIAL ENCOUNTER Qualifiers: Encounter type: initial encounter Qualified Code(s): S43.014A - Anterior dislocation of right humerus, initial encounter (2) Fracture of proximal end of right humerus Assessment/Plan: arm in sling no ROM right now ortho on board pain control Code(s): S42.201A - UNSP FRACTURE OF UPPER END OF RIGHT HUMERUS, INIT Qualifiers: Encounter type: initial encounter Fracture type: closed Fracture morphology: unspecified fracture morphology Qualified Code(s): S42.201A - Unspecified fracture of upper end of right humerus, initial encounter for closed fracture (3) CAD (coronary artery disease) Assessment/Plan: brilinta coreg asprin statin cardiology eval Code(s): I25.10 - ATHSCL HEART DISEASE OF [place] CORONARY ARTERY W/O ANG PCTRS
--- NOTE | 2018-09-01 14:16 | PN ---
Progress Note (short form) - Note Progress Note: spoke to dr tala you he is awaiting official read on CTA to look for hematoma if cta is negative then plan will be to feed the patient and discharge him home with resuming his asprin and brilinta currently patient is nPO cardiology consulted for pre op clearance if neded depending on cta results Problem List - Problems (1) Anterior dislocation of right shoulder Code(s): S43.014A - ANTERIOR DISLOCATION OF RIGHT HUMERUS, INITIAL ENCOUNTER Qualifiers: Encounter type: initial encounter Qualified Code(s): S43.014A - Anterior dislocation of right humerus, initial encounter (2) Fracture of proximal end of right humerus Code(s): S42.201A - UNSP FRACTURE OF UPPER END OF RIGHT HUMERUS, INIT Qualifiers: Encounter type: initial encounter Fracture type: closed Fracture morphology: unspecified fracture morphology Qualified Code(s): S42.201A - Unspecified fracture of upper end of right humerus, initial encounter for closed fracture (3) CAD (coronary artery disease) Code(s): I25.10 - ATHSCL HEART DISEASE OF [place] CORONARY ARTERY W/O ANG PCTRS
--- NOTE | 2018-09-01 15:24 | CON.CARD ---
Consult Consult Specialty:: cardiology Reason for Consultation:: Preop eval - History of Present Illness History of Present Illness: 73 year old man with PMH of thoracic ascending aortic aneurysm, HTN, HLD, CAD with anterior MO S/P PCI with KIMBERLY Xience Alpine 3.5 x 15mm - to pLAD (95% stenosis) in setting of sepsis. Last measurement of ascending aortic aneurysm by CTA in 09/11 was 4.5 cm, which is stable compared to that done in 08/10 prior to this hospitalization - he had another CTA done prior to his cardiac cath revealing stable aneurysm. Echocardiogram 05/2018 with normal LV function. Admitted after a slip and fall with farcture of the humerus. No chest apin or dyspnea. Ambulatory capacity is intact. - History Source History Provided By: Patient, Medical Record - Past Medical History Cardio/Vascular: Yes: CAD - Alcohol/Substance Use Hx Alcohol Use: No - Smoking History Smoking history: Former smoker Have you smoked in the past 12 months: No If you are a former smoker, when did you quit?: 40 years ago Home Medications - Allergies Allergies/Adverse Reactions: Allergies Allergy/AdvReac Type Severity Reaction Status Date / Time Penicillins Allergy Intermediate Rash Verified 08/31/18 17:16 - Home Medications Home Medications: Ambulatory Orders Atorvastatin Ca [Lipitor] 10 mg PO HS 07/04/14 Aspirin 81 mg PO DAILY 08/31/18 Carvedilol [Coreg -] 6.25 mg PO BID 08/31/18 Finasteride [Proscar -] 5 mg PO DAILY 08/31/18 Losartan/Hydrochlorothiazide [Losartan-Hctz 100-25 mg Tab] 1 each PO DAILY 08/31 Pantoprazole Sodium [Protonix -] 40 mg PO DAILY 08/31/18 Ticagrelor [Brilinta] 60 mg PO BID 08/31/18 Review of Systems - Review of Systems Constitutional: reports: No Symptoms Eyes: reports: No Symptoms HENT: reports: No Symptoms Neck: reports: No Symptoms Cardiovascular: reports: No Symptoms. denies: Chest Pain, Edema, Palpitations, Shortness of Breath Respiratory: denies: Cough, Exercise Intolerance, SOB, SOB on Exertion Gastrointestinal: denies: Abdominal Pain, Bloating, Constipation Genitourinary: reports: No Symptoms Breasts: reports: No Symptoms Reported Musculoskeletal: reports: Extremity Pain Vital Signs: Vital Signs Temperature 98.2 F 09/01/18 15:12 Pulse Rate 72 09/01/18 15:12 Respiratory Rate 18 09/01/18 15:12 Blood Pressure 128/65 09/01/18 15:12 O2 Sat by Pulse Oximetry (%) 100 09/01/18 09:00 Constitutional: Yes: Well Nourished, No Distress, Calm Eyes: Yes: Conjunctiva Clear, EOM Intact HENT: Yes: Atraumatic, Normocephalic Neck: Yes: Supple, Trachea Midline Respiratory: Yes: Regular, CTA Bilaterally Gastrointestinal: Yes: Normal Bowel Sounds, Soft Cardiovascular: Yes: Regular Rate and Rhythm JVD: No Carotid Bruit: No PMI: Non-Displaced Heart Sounds: Yes: S1, S2 Murmur: No: Systolic Murmur, Diastolic Murmur Edema: Yes Edema: LLE: Trace, RLE: Trace - Other Data Labs, Other Data: CBC, BMP 08/31/18 17:56 08/31/18 17:56 INR, PTT INR 1.03 (0.83-1.09) 08/31/18 18:[address] T changes. Problem List - Problems (1) Anterior dislocation of right shoulder Code(s): S43.014A - ANTERIOR DISLOCATION OF RIGHT HUMERUS, INITIAL ENCOUNTER Qualifiers: Encounter type: initial encounter Qualified Code(s): S43.014A - Anterior dislocation of right humerus, initial encounter (2) CAD (coronary artery disease) Code(s): I25.10 - ATHSCL HEART DISEASE OF [place] CORONARY ARTERY W/O ANG PCTRS Assessment/Plan 73 M CAD sp MO sp PCI. stable cad, stable thoracic anurysm adm sp slip and fall with humerus fracture. 1. CAD is stable. No history of CHF. Brilinta can be held if there is risk of bleeding after this type of fracture. Would resume ASA if cleared by surgery. Contin ue with coreg and ARB. Cont statn. 2. Preop eval. Pt is stable from cardiac stand point. He is at intermediate cardiac risk for surgery. No further testing is recommended. 3. Thoracic anuerysm is stable in size Cont COreg and ARB.
[2018-09-01 16:31] LABS: BASO % 0.2 % (0-2.0); EOS % 0.3 % (0-4.5); HEMATOCRIT 32.7 % (35.4-49); HEMOGLOBIN 11.8 GM/dL (11.7-16.9); LYMPH % 15.3 % (8-40); MCH 31.9 pg (25.7-33.7); MEAN CELL VOLUME 88.5 fl (80-96); MEAN PLT VOLUME 8.3 fl (7.5-11.1); MONO % 12.4 % (3.8-10.2); NEUT % 71.8 % (42.8-82.8); PLATELET COUNT 223 K/MM3 (134-434); RDW 15.5 % (11.9-15.9); WHITE BLOOD COUNT 10.2 K/mm3 (4.0-10.0)
--- NOTE | 2018-09-01 17:32 | PN ---
Progress Note (short form) - Note Progress Note: ASSESSMENT AND PLAN 73 year old right-hand dominant male with (1) right proximal humerus fracture- dislocation, (2) brachial plexopathy involving the median and ulnar nerves, and (3) 1st rib fracture. - I discussed the right upper extremity CT angiogram results with ( Radiologist). There is no localized hematoma or active extravasation noted. The patient is stable from an orthopedic standpoint to be discharged. He can follow up in this office this week. - Maintain sling. No Shoulder ROM; Elbow, wrist and hand ROM okay. - Appreciate medical management - After discussing surgical and nonoperative treatment options with the patient and his family, we have agreed to attempt nonoperative management for his fracture. The plan will be to convert him to a shoulder brace this week and obtain new radiographs. Otliio Goodwin DO Gopal Hassan, DO Orthopedic Surgery [phone]
[2018-09-01] MEDS ORDERED: DOCUSATE SODIUM 100 MG CAPSULE (FP) PO SCH (22:00)
[2018-09-01] MEDS: ATORVASTATIN CA 10 MG TABLET (FP) PO SCH (22:46)
[2018-09-02] MEDS: oxyCODONE HCL 5 MG TABLET PO PRN ×2 (05:41→11:36)
[2018-09-02 07:44] LABS: BASO % 0.5 % (0-2.0); EOS % 1.1 % (0-4.5); HEMATOCRIT 29.9 % (35.4-49); HEMOGLOBIN 10.4 GM/dL (11.7-16.9); LYMPH % 18.3 % (8-40); MCH 30.5 pg (25.7-33.7); MCHC 34.9 g/dl (32.0-35.9); MEAN CELL VOLUME 87.6 fl (80-96); MEAN PLT VOLUME 8.3 fl (7.5-11.1); MONO % 11.8 % (3.8-10.2); NEUT % 68.3 % (42.8-82.8); PLATELET COUNT 157 K/MM3 (134-434); RBC 3.41 M/mm3 (4.00-5.60); RDW 15.6 % (11.9-15.9); WHITE BLOOD COUNT 8.4 K/mm3 (4.0-10.0)
[2018-09-02 07:55] LABS: ALBUMIN 3.1 g/dl (3.4-5.0); ALK PHOS 51 U/L (45-117); ANION GAP 9 MMOL/L (8-16); BILIRUBIN,TOTAL 0.8 mg/dL (0.2-1); BLOOD UREA NITROGEN 29 mg/dL (7-18); CALCIUM 7.9 mg/dL (8.5-10.1); CHLORIDE 101 mmol/L (98-107); CO2 29 mmol/L (21-32); GLUCOSE,RANDOM 119 mg/dL (74-106); POTASSIUM 3.3 mmol/L (3.5-5.1); SGOT/AST 22 U/L (15-37); SGPT/ALT 17 U/L (13-61); SODIUM 139 mmol/L (136-145); TOT PROT 5.6 g/dl (6.4-8.2)
[2018-09-02] MEDS ORDERED: PT OWN MED DRAWER 7, Y5N ONE (10:31)
[2018-09-02] MEDS: CARVEDILOL 6.25 MG TABLET (FP) PO SCH (10:33)
[2018-09-02] MEDS: FINASTERIDE 5 MG TABLET (FP) PO SCH (10:33)
[2018-09-02] MEDS: PANTOPRAZOLE 40 MG TABLET (FP) PO SCH (10:33)
[2018-09-02] MEDS: TICAGRELOR 60 MG TABLET PO SCH (10:33)
[2018-09-02] MEDS: LOSARTAN 50MG/HCTZ 12.5MG 1 TAB (FP) PO SCH (10:34)
--- NOTE | 2018-09-02 10:40 | PN ---
Progress Note, Physician - Current Medication List Current Medications: Active Medications Aspirin (Asa -) 81 mg PO [facility] Last Admin: 09/01/18 01:06 Dose: 81 mg Atorvastatin Calcium (Lipitor -) 10 mg PO HS [facility] Last Admin: 09/01/18 22:46 Dose: 10 mg Carvedilol (Coreg -) 6.25 mg PO BID [facility] Last Admin: 09/01/18 22:46 Dose: 6.25 mg Docusate Sodium (Colace -) 300 mg PO HS [facility] Last Admin: 09/01/18 22:46 Dose: 300 mg Finasteride (Proscar -) 5 mg PO DAILY [facility] Last Admin: 09/01/18 10:48 Dose: 5 mg HCTZ/Losartan Potassium (Hyzaar -) 2 tab PO DAILY [facility] Last Admin: 09/01/18 12:17 Dose: 2 tab Oxycodone HCl (Roxicodone -) 5 mg PO Q4H PRN PRN Reason: PAIN LEVEL 6-10 Last Admin: 09/02/18 05:41 Dose: 5 mg Pantoprazole Sodium (Protonix -) 40 mg PO DAILY [facility] Last Admin: 09/01/18 10:48 Dose: 40 mg Ticagrelor (Brilinta) 60 mg PO BID [facility] Last Admin: 09/01/18 11:00 Dose: Not Given - Objective Vital Signs: Vital Signs Temperature 97.7 F 09/02/18 06:00 Pulse Rate 60 09/02/18 06:00 Respiratory Rate 20 09/02/18 06:00 Blood Pressure 120/63 09/02/18 06:00 O2 Sat by Pulse Oximetry (%) 100 09/01/18 21:00 Cardiovascular: Yes: S1, S2 Respiratory: Yes: Regular, CTA Bilaterally Gastrointestinal: Yes: Normal Bowel Sounds, Soft. No: Tenderness Musculoskeletal: Yes: Joint Stiffness, Joint Swelling, Muscle Weakness (RUE) Extremities: Yes: Other (swelling over right shoulder) Labs: CBC, BMP 09/02/18 06:25 09/02/18 06:25 INR, PTT INR 1.03 (0.83-1.09) 08/31/18 18:08 Problem List - Problems (1) Anterior dislocation of right shoulder Assessment/Plan: seen by ortho shoulder relocated CTA no hematoma noted pain control stool [employer]ners inc WBC secondary to stress of fracture and fall- will repeat today monitor the h/h sling Code(s): S43.014A - ANTERIOR DISLOCATION OF RIGHT HUMERUS, INITIAL ENCOUNTER Qualifiers: Encounter type: initial encounter Qualified Code(s): S43.014A - Anterior dislocation of right humerus, initial encounter (2) Fracture of proximal end of right humerus Assessment/Plan: arm in sling no ROM right now ortho on board--no surgical intervention at this time pain control Code(s): S42.201A - UNSP FRACTURE OF UPPER END OF RIGHT HUMERUS, INIT Qualifiers: Encounter type: initial encounter Fracture type: closed Fracture morphology: unspecified fracture morphology Qualified Code(s): S42.201A - Unspecified fracture of upper end of right humerus, initial encounter for closed fracture (3) Anemia Assessment/Plan: -monitor hgb Code(s): D64.9 - ANEMIA, UNSPECIFIED (4) CAD (coronary artery disease) Assessment/Plan: brilinta on hold resume once hgb stable and cleared by ortho coreg asprin on 81 qd statin cardiology eval noted Code(s): I25.10 - ATHSCL HEART DISEASE OF [place] CORONARY ARTERY W/O ANG PCTRS
[2018-09-02] MEDS ORDERED: POTASSIUM CHLORIDE TABS 20 MEQ TABLET.ER (FP) PO ONE (11:15)
--- NOTE | 2018-09-02 13:02 | PN ---
Progress Note (short form) - Note Progress Note: ORTHOPEDIC SURGERY PROGRESS NOTE SUBJECTIVE No acute events overnight. Denies any pain. No complaints currently other than persistent altered sensation in his fingers. Denies chest pain, shortness of breath, or calf pain. No nausea or vomiting. Tolerating oral intake. VITAL SIGNS Vital Signs Period Temp Pulse Resp BP Sys/Calero Pulse Ox Last 24 Hr 97.7 F-98.2 F 60-77 18-20 89-130/42-76 100-100 INTAKE/OUTPUT Intake & Output 08/30/18 08/31/18 09/01/18 09/02/18 23:59 23:59 23:59 23:59 Intake Total 600 415 Balance 600 415 Weight 215 lb 239 lb 3 oz PHYSICAL EXAMINATION General: Alert, oriented, cooperative and no distress. Sitting comfortably in bed. Right Upper Extremity: Sling on. Moderate soft tissue swelling. Skin overlying shoulder is firm but compressible. No axillary hematoma formation. Skin intact, no lesions, rashes or ulcers noted. Muscle mass equal and symmetric to contralateral side. Mild tenderness to palpation over the shoulder. Unable to make okay sign. Able to fire his deltoid; able to extend his thumb IP joint; able to abduct his fingers, but weak; able to extend his wrist; able to flex and extend his elbow. Altered sensation over the lateral aspect of the shoulder. Altered sensation over the thumb and middle finger and ulnar aspect of the forearm. Sensation intact over the little finger. 2+ radial pulses; Cap refill brisk. Lower Extremity: No tenderness to palpation. Full passive and active ROM, free from pain. EHL/TA/GS motor intact; SILT distally; 2+ DP pulses; Cap refill brisk DVT Exam: No evidence of DVT seen on physical exam; No cords or calf tenderness ; No significant calf/ankle edema CURRENT MEDS Active Medications Aspirin (Asa -) 81 mg PO [facility] Last Admin: 09/01/18 01:06 Dose: 81 mg Atorvastatin Calcium (Lipitor -) 10 mg PO [facility] Last Admin: 09/01/18 22:46 Dose: 10 mg Carvedilol (Coreg -) 6.25 mg PO BID [facility] Last Admin: 09/02/18 10:33 Dose: 6.25 mg Docusate Sodium (Colace -) 300 mg PO [facility] Last Admin: 09/01/18 22:46 Dose: 300 mg Finasteride (Proscar -) 5 mg PO DAILY [facility] Last Admin: 09/02/18 10:33 Dose: 5 mg HCTZ/Losartan Potassium (Hyzaar -) 2 tab PO DAILY [facility] Last Admin: 09/02/18 10:34 Dose: 2 tab Oxycodone HCl (Roxicodone -) 5 mg PO Q4H PRN PRN Reason: PAIN LEVEL 6-10 Last Admin: 09/02/18 11:36 Dose: 5 mg Pantoprazole Sodium (Protonix -) 40 mg PO DAILY [facility] Last Admin: 09/02/18 10:33 Dose: 40 mg Ticagrelor (Brilinta) 60 mg PO BID [facility] Last Admin: 09/02/18 10:33 Dose: 60 mg LABS CBC WBC 8.4 K/mm3 (4.0-10.0) 09/02/18 06:25 RBC 3.41 M/mm3 (4.00-5.60) L 09/02/18 06:25 Hgb 10.4 GM/dL (11.7-16.9) L 09/02/18 06:25 Hct 29.9 % (35.4-49) L 09/02/18 06:25 MCV 87.6 fl (80-96) 09/02/18 06:25 MCH 30.5 pg (25.7-33.7) 09/02/18 06:25 MCHC 34.9 g/dl (32.0-35.9) 09/02/18 06:25 RDW 15.6 % (11.9-15.9) 09/02/18 06:25 Plt Count 157 K/MM3 (134-434) D 09/02/18 06:25 MPV 8.3 fl (7.5-11.1) 09/02/18 06:25 Absolute Neuts (auto) 5.7 K/mm3 (1.5-8.0) 09/02/18 06:25 Neutrophils % 68.3 % (42.8-82.8) 09/02/18 06:25 Lymphocytes % 18.3 % (8-40) 09/02/18 06:25 Monocytes % 11.8 % (3.8-10.2) H 09/02/18 06:25 Eosinophils % 1.1 % (0-4.5) D 09/02/18 06:25 Basophils % 0.5 % (0-2.0) 09/02/18 06:25 Nucleated RBC % 0 % (0-0) 09/02/18 06:25 CMP Sodium 139 mmol/L (136-145) 09/02/18 06:25 Potassium 3.3 mmol/L (3.5-5.1) L 09/02/18 06:25 Chloride 101 mmol/L (98-107) 09/02/18 06:25 Carbon Dioxide 29 mmol/L (21-32) 09/02/18 06:25 Anion Gap 9 MMOL/L (8-16) 09/02/18 06:25 BUN 29 mg/dL (7-18) H 09/02/18 06:25 Creatinine 1.0 mg/dL (0.55-1.3) 09/02/18 06:25 Creat Clearance w eGFR > 60 (>60) 09/02/18 06:25 Random Glucose 119 mg/dL (74-106) H 09/02/18 06:25 Calcium 7.9 mg/dL (8.5-10.1) L 09/02/18 06:25 Total Bilirubin 0.8 mg/dL (0.2-1) 09/02/18 06:25 AST 22 U/L (15-37) 09/02/18 06:25 ALT 17 U/L (13-61) 09/02/18 06:25 Alkaline Phosphatase 51 U/L (45-117) 09/02/18 06:25 Total Protein 5.6 g/dl (6.4-8.2) L 09/02/18 06:25 Albumin 3.1 g/dl (3.4-5.0) L 09/02/18 06:25 INR, PTT INR 1.03 (0.83-1.09) 08/31/18 18:08 ASSESSMENT AND PLAN 73 year old right-hand dominant male with (1) right proximal humerus fracture- dislocation, (2) brachial plexopathy involving the median and ulnar nerves, and (3) 1st rib fracture. - After discussing surgical and nonoperative treatment options with the patient and his family, we have agreed to attempt nonoperative management for his fracture. The plan will be to convert him to a shoulder brace this week and obtain new radiographs. - The patient is stable from an orthopedic standpoint to be discharged. He can follow up in this office this week. - Maintain sling. No Shoulder ROM; Elbow, wrist and hand ROM okay. - Appreciate medical management DO Gopal Holland, Orthopedic Surgery [phone]
--- NOTE | 2018-09-02 13:58 | CONSULT ---
Consult Consult Specialty:: PM&R - History of Present Illness History of Present Illness: This is a 73 year old man with a medical history of CAD s/p stent, s/p [place], HTN, HLD, thoracic ascending aortic aneurysm/ AAA, GERD, BPH, who presented to the ED 08/31/18 following a fall up the stairs. XR R shoulder/ humerus showed a comminuted humeral head/ neck fx with anterior dislocation of the proximal humerus. CT R shoulder was performed as well, and CTA R shoulder showed no hematoma or obvious vascular injury. Ortho performed manual closed reduction, with recommendations for sling RUE with no RUE ROM. Cardiology consult cleared him for surgery in case it is needed, but he is to have trial conservative treatment first. Anemia was monitored as it is trending downward. Physiatry is consulted for further recommendations. - Past Medical History Cardio/Vascular: Yes: CAD - Alcohol/Substance Use Hx Alcohol Use: No - Smoking History Smoking history: Former smoker Have you smoked in the past 12 months: No If you are a former smoker, when did you quit?: 40 years ago - Social History Usual Living Arrangement: With Spouse (lives with spouse in house with 12 steps inside, previously Independent in ADLs without AD) Home Medications - Allergies Allergies/Adverse Reactions: Allergies Allergy/AdvReac Type Severity Reaction Status Date / Time Penicillins Allergy Intermediate Rash Verified 08/31/18 17:16 - Home Medications Home Medications: Ambulatory Orders Atorvastatin Ca [Lipitor] 10 mg PO HS 07/04/14 Aspirin 81 mg PO DAILY 08/31/18 Carvedilol [Coreg -] 6.25 mg PO BID 08/31/18 Finasteride [Proscar -] 5 mg PO DAILY 08/31/18 Losartan/Hydrochlorothiazide [Losartan-Hctz 100-25 mg Tab] 1 each PO DAILY 08/31 Pantoprazole Sodium [Protonix -] 40 mg PO DAILY 08/31/18 Ticagrelor [Brilinta] 60 mg PO BID 08/31/18 Review of Systems Findings/Remarks: denies fevers, chills, changes in vision/ hearing/ mood, CP, SOB, abdominal pain , nausea, vomiting, constipation, diarrhea. He has R anterior shoulder and upper arm pain. R hand and arm numbness is improving and now just along ulnar aspect of the forearm. R hand has improved movement. Physical Exam Vital Signs: Vital Signs Temperature 97.9 F 09/02/18 10:36 Pulse Rate 77 09/02/18 10:36 Respiratory Rate 18 09/02/18 10:36 Blood Pressure 130/76 09/02/18 10:36 O2 Sat by Pulse Oximetry (%) 100 09/02/18 09:00 Musculoskeletal: Yes: Other (General: calm elderly M sitting EOB NAD, AAO x3, sling to RUE in place N/M: full LUE/ BLE ROM, 5/5 LUE/ BLE, 4/5 R FF otherwise MMT RUE not performed; Pinprick decreased R 3rd finger but otherwise intact BUE Extremities: no R hand pitting edema) Labs: CBC, BMP 09/02/18 06:25 09/02/18 06:25 Imaging - Results X-ray: Report Reviewed (as per HPI) Cat Scan: Report Reviewed (as per HPI) Assessment/Plan Impression: 1) Deficits mobility/ ADLs 2) R comminuted humeral head/ neck fx with anterior dislocation of the proximal humerus, s/p closed reduction by Ortho 3) Anemia 4) Brachial plexopathy improving 5) hx CAD s/p stent, s/p [place], HTN, HLD 6) hx thoracic ascending aortic aneurysm/ AAA 7) hx GERD 8) hx BPH 9) Obesity 10) Up to date flu shot, no documented pneumovax Recommendations: 1) PT for functional mobility 2) Falls, safety precautions 3) Cardiac precautions 4) Ice R upper arm/ shoulder prn 5) Sling RUE, to f/u as outpt 09/04/18 for shoulder brace 6) D/w pt importance of R elbow/ wrist/ finger ROM 7) D/w pt importance of elevating R hand above wrist to reduce hand swelling ( already improving) 8) DVT ppx: encourage ambulation, AC as per Cards/ Ortho (On ASA 81mg and Brilenta) 9) Denies constipation on current bowel regimen 10) Monitor CBC given anemia, to have repeat this evening 11) Nutrition consult for obesity 12) Discharge planning: to go home once medically stable Thank you for this referral.
[2018-09-02 14:44] VITALS: BP 101/58; PULSE 62; TEMP 98.7
--- NOTE | 2018-09-02 15:21 | PN ---
Progress Note, Physician History of Present Illness: seen and examined today in [facility]. pt states he is not having surgery and is planned for discharge. no new complaints. - Current Medication List Current Medications: Active Medications Aspirin (Asa -) 81 mg PO HS [facility] Last Admin: 09/01/18 01:06 Dose: 81 mg Atorvastatin Calcium (Lipitor -) 10 mg PO HS [facility] Last Admin: 09/01/18 22:46 Dose: 10 mg Carvedilol (Coreg -) 6.25 mg PO BID [facility] Last Admin: 09/02/18 10:33 Dose: 6.25 mg Docusate Sodium (Colace -) 300 mg PO HS [facility] Last Admin: 09/01/18 22:46 Dose: 300 mg Finasteride (Proscar -) 5 mg PO DAILY [facility] Last Admin: 09/02/18 10:33 Dose: 5 mg HCTZ/Losartan Potassium (Hyzaar -) 2 tab PO DAILY [facility] Last Admin: 09/02/18 10:34 Dose: 2 tab Oxycodone HCl (Roxicodone -) 5 mg PO Q4H PRN PRN Reason: PAIN LEVEL 6-10 Last Admin: 09/02/18 11:36 Dose: 5 mg Pantoprazole Sodium (Protonix -) 40 mg PO DAILY [facility] Last Admin: 09/02/18 10:33 Dose: 40 mg Ticagrelor (Brilinta) 60 mg PO BID [facility] Last Admin: 09/02/18 10:33 Dose: 60 mg - Objective Vital Signs: Vital Signs Temperature 98.7 F 09/02/18 14:43 Pulse Rate 62 09/02/18 14:43 Respiratory Rate 20 09/02/18 14:43 Blood Pressure 101/58 L 09/02/18 14:43 O2 Sat by Pulse Oximetry (%) 100 09/02/18 09:00 Constitutional: Yes: No Distress, Calm Eyes: Yes: Conjunctiva Clear, EOM Intact HENT: Yes: Atraumatic, Normocephalic Neck: Yes: Supple, Trachea Midline Cardiovascular: Yes: Regular Rate and Rhythm, S1, S2. No: Bradycardia, Tachycardia, Pulse Irregular, Bruit, JVD, Gallop, Murmur, Rub, S3, S4, Varicosities Respiratory: Yes: Regular, CTA Bilaterally. No: Rales, Rhonchi, SOB, Wheezes Gastrointestinal: Yes: Normal Bowel Sounds, Soft. No: Distention, Tenderness Edema: No Peripheral Pulses WNL: Yes Peripheral Pulses: Left Doralis Pedis: 2+, Right Dorsalis Pedis: 2+ Neurological: Yes: Alert, Oriented Psychiatric: Yes: Alert, Oriented Labs: CBC, BMP 09/02/18 06:25 09/02/18 06:25 INR, PTT INR 1.03 (0.83-1.09) 08/31/18 18:08 - ....Imaging Chest X-ray: Report Reviewed, Image Reviewed EKG: Report Reviewed, Image Reviewed Other: Report Reviewed, Image Reviewed Assessment/Plan 73 M CAD sp MO sp PCI. stable cad, stable thoracic anurysm adm sp slip and fall with humerus fracture. 1. CAD is stable. No history of CHF. 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 Preop eval. Pt not having surgery -no additional work up needed 3. Thoracic anuerysm is stable in size Cont COreg and ARB. outpatient fup his coating manager. please call with any additional questions.
[2018-09-02 16:00] LABS: HEMATOCRIT 30.2 % (35.4-49); HEMOGLOBIN 10.5 GM/dL (11.7-16.9); MCH 30.8 pg (25.7-33.7); MCHC 34.8 g/dl (32.0-35.9); MEAN CELL VOLUME 88.6 fl (80-96); MEAN PLT VOLUME 7.9 fl (7.5-11.1); PLATELET COUNT 187 K/MM3 (134-434); RBC 3.41 M/mm3 (4.00-5.60); RDW 15.9 % (11.9-15.9); WHITE BLOOD COUNT 9.4 K/mm3 (4.0-10.0)
--- NOTE | 2018-09-02 16:27 | DS ---
Physical Examination Vital Signs: Vital Signs Temperature 98.7 F 09/02/18 14:43 Pulse Rate 62 09/02/18 14:43 Respiratory Rate 20 09/02/18 14:43 Blood Pressure 101/58 L 09/02/18 14:43 O2 Sat by Pulse Oximetry (%) 100 09/02/18 09:00 Labs: CBC, BMP 09/02/18 15:15 09/02/18 06:25 Discharge Summary Reason For Visit: ANTERIOR DISLOCATION OF RIGHT SHOULDER Current Active Problems Anemia (Acute) Anterior dislocation of right shoulder (Acute) CAD (coronary artery disease) (Acute) Fracture of proximal end of right humerus (Acute) Shoulder injury (Acute) Condition: Stable - Instructions Diet, Activity, Other Instructions: Follow up laba and apt within one week with dr em valderrama Referrals: Em Valderrama MD [Non Staff, Medical] - 1 Week Gabe Valderrama MD [Primary Care Provider] - - Home Medications Comprehensive Discharge Medication List: Ambulatory Orders Atorvastatin Ca [Lipitor] 10 mg PO HS 07/04/14 Aspirin 81 mg PO DAILY 08/31/18 Carvedilol [Coreg -] 6.25 mg PO BID 08/31/18 Finasteride [Proscar -] 5 mg PO DAILY 08/31/18 Losartan/Hydrochlorothiazide [Losartan-Hctz 100-25 mg Tab] 1 each PO DAILY 08/31 Pantoprazole Sodium [Protonix -] 40 mg PO DAILY 08/31/18 Ticagrelor [Brilinta] 60 mg PO BID 08/31/18 oxyCODONE HCL [Roxicodone -] 5 mg PO QID PRN #30 tablet MDD 4 09/02/18
== END 2018-09-02 16:55 | disposition home or self-care (01) | DRG 563 ==
LOC: JER 17:14 → JERBED 19:52 → J5S 09-01 00:53
PROVIDERS: ADMIT Internal Medicine; ATTEND Family Medicine
PROC: 0PSCXZZ Reposition Right Humeral Head, External Approach (ICD-10-PCS; principal; 2018-08-31)
DX: S42.201A Unspecified fracture of upper end of right humerus, initial encounter for closed fracture (principal); S43.014A Anterior dislocation of right humerus, initial encounter; I10 Essential (primary) hypertension; E78.5 Hyperlipidemia, unspecified; I71.9 Aortic aneurysm of unspecified site, without rupture; I25.10 Atherosclerotic heart disease of native coronary artery without angina pectoris; N40.0 Benign prostatic hyperplasia without lower urinary tract symptoms; K21.9 Gastro-esophageal reflux disease without esophagitis; I25.2 Old myocardial infarction; G54.0 Brachial plexus disorders; E66.9 Obesity, unspecified; W17.89XA Other fall from one level to another, initial encounter; Y92.098 Other place in other non-institutional residence as the place of occurrence of the external cause; D64.9 Anemia, unspecified; Z87.891 Personal history of nicotine dependence; Z68.34 Body mass index [BMI] 34.0-34.9, adult
CPT/HCPCS: 36415; 72170-TC-FY; 73030-TC-RT-FY; 73060-TC-RT-FY; 73200-TC-RT; 73206-TC-RT; 73562-TC-RT-FY; 80053; 85025; 85027; 85610; 86850; 86900; 86901; 93005; 93010; 97116-GP; 97161-GP; 99284-25